=== PATIENT | male | born 1970 | race Caucasian/White ===

== ENCOUNTER 2016-05-13 04:32 | Day surgery (SDC) | payer OTHER ==
[2016-05-12 10:40] LABS: HEMATOCRIT 42.8 % (40.0-51.0); HEMOGLOBIN 14.3 g/dL (13.6-17.8)
--- NOTE | ~2016-05-13 | OP ---
Record Of Operation [facility] [address] [place]. [address] NAME: NANCY DINERO : 68 STATUS : [facility]#: [id number] AGE: 46 ADM/REG DATE : 05/13/16 MR#: [id number] REPORT SERV DATE: 05/15/16 DICTATED BY: LEXII POSADAS II DATE: 05/15/16 REPORT STATUS : Draft TRANSCRIBED BY: MODL DATE: 05/15/16 DATE OF PROCEDURE: 05/13/2016 PREOPERATIVE DIAGNOSES: 1. Right lower extremity severe radiculopathy. 2. Large L4-5 herniated nucleus pulposus. POSTOPERATIVE DIAGNOSES: 1. Right lower extremity severe radiculopathy. 2. Large L4-5 herniated nucleus pulposus. PROCEDURES: 1. Right L4-L5 microdiskectomy. 2. Use of the microscope and stereotactic spinal imaging. SURGEON: Lexii Posadas M.D. FLUIDS: 900 mL LR. ESTIMATED BLOOD LOSS: 15 mL. DRAINS: None. COMPLICATIONS: None. ANTIBIOTICS: Preoperatively. PREOPERATIVE HISTORY: This is a very friendly 46-year-old gentleman, who reports significant and severe radiating pain into the right buttock and leg. He was found to have a very large HNP on the MRI. We discussed the pros and cons of surgery. Given the severe pain and some weakness, he was very interested in surgery. We discussed the risks which include, but are not limited to infection, abscess, CSF leak, foot drop, recurrent herniation, and a small chance of stroke and . DESCRIPTION OF PROCEDURE: After informed consent was obtained, the patient was brought to the operating room at his request and general anesthesia achieved. He was placed in the prone position and the back was prepped and draped in a sterile fashion. The stereotactic spinal pin was placed into the iliac crest on the left. The intraoperative CT scan was completed and the stereotactic guidance used throughout the case. Next, the minimally invasive incision was performed at L4-5 on the right. The minimally invasive tubular retractor was placed and the microscope brought into place. Under microscopic visualization, the laminotomy was performed with the high-speed bur, the Kerrison rongeurs, and the curettes. The ligamentum flavum was removed from this right side of the canal and the dura well identified. The L5 nerve root was now found to be severely compressed by the large disk herniation. The L5 nerve root was then retracted and a very Record Of Operation [place] [id number] [place]. [id number] NAME: NANCY DINERO : 68 STATUS : [facility] PAT#: [id number] AGE: 46 ADM/REG DATE : 05/13/16 MR#: [id number] REPORT SERV DATE: 05/15/16 DICTATED BY: LEXII POSADAS II DATE: 05/15/16 REPORT STATUS : Draft TRANSCRIBED BY: MIRZAL DATE: 05/15/16 large extruded fragment noted and removed. This allowed immediate decompression of the L5 nerve root. The traumatic annulotomy from the herniation was gently explored and no other fragments found under the ligament. At this point, the area was irrigated and hemostasis confirmed. Standard closure was performed, and the patient was then extubated and transferred to PACU in stable condition. I saw him as he was leaving from phase 2 recovery and he was comfortable, stable, and very happy as his leg was not in severe pain any longer. I discussed the case with his postoperatively, and I answered all of her questions, and again reminded her of the postop instructions and again all questions were answered. FRED/EZEQUIEL Lexii Posadas II, M.D. / [id number] CC: Lexii Posadas II, M.D.
[~2016-05-13 04:32] MED LIST: ALEVE220 MG PO; NEUR300 PO; NORCO1 TA2 PO; PROAIR HFA INH
== END 2016-05-13 16:58 | disposition home or self-care (01) ==
LOC: SDC 04:32
PROVIDERS: Orthopaedic Surgery
PROC: 01NB0ZZ Release Lumbar Nerve, Open Approach (ICD-10-PCS; 2016-05-13)
PROC: 0SB20ZZ Excision of Lumbar Vertebral Disc, Open Approach (ICD-10-PCS; principal; 2016-05-13 05:45)
DX: M51.16 Intervertebral disc disorders with radiculopathy, lumbar region (principal); E66.9 Obesity, unspecified; J45.909 Unspecified asthma, uncomplicated; Z98.890 Other specified postprocedural states
CPT/HCPCS: 85014; 85018; 88304; 88311; A9270-GY; J0690; J1030; J2250; J2405; J2710; J3010